=== PATIENT | female | born 1980 | race American Indian/Alaskan Native ===

== ENCOUNTER 2017-08-09 06:49 | Day surgery (SDC) | payer MEDICARE ==
[2017-08-09] MEDS ORDERED: NACL 0.9% 1000 ML 1,000 ML IV SCH (08:00)
--- NOTE | 2017-08-09 08:11 | Anesthesia Day of Surgery ---
Anesthesia Day of Surgery - Day of Surgery Patient Examined: Yes Patient is NPO: Yes Beta Blockers: Yes
--- NOTE | 2017-08-09 08:13 | Anesthesia Consultation ---
Anesthesia Consult and Med Hx Date of service: 08/09/17 - Airway Anesthetic Teeth Evaluation: Dentures, Edentulous ROM Head & Neck: Adequate Mental/Hyoid Distance: Adequate Mallampati Class: Class II Intubation Access Assessment: Probably Good - Pulmonary Exam CTA: Yes - Cardiac Exam Cardiac Exam: RRR - Pre-Operative Health Status ASA Pre-Surgery Classification: ASA3 Proposed Anesthetic Plan: MAC - Pulmonary Hx Smoking: Yes ( A TEENAGER, NONE SINCE) Hx Asthma: Yes Hx Sleep Apnea: Yes (MILD, NOT ON CPAP) - Cardiovascular System Hx Hypertension: Yes Hx Cardia Arrhythmia: Yes (TACHYCARDIA) Hx Pacemaker: Yes Hx Internal Defibrillator: Yes (EF 35%) - Central Nervous System Hx Seizures: Yes (GRAND MAL, TOOK MEDS THIS AM) CVA: Yes (QUESTIONABLE, MAY HAVE BEEN A SEIZURE, NO RESIDUAL DEFICIT) Hx Back Pain: Yes - Gastrointestinal Hx Gastroesophageal Reflux Disease: Yes - Endocrine Hx Renal Disease: No Hx Liver Disease: Yes (FATTY LIVER) Hx Insulin Dependent Diabetes: Yes Hx Thyroid Disease: No - Other Systems Hx Cancer: Yes (OVARIAN) Hx Obesity: Yes (MORBID)
[2017-08-09] MEDS ORDERED: DIPRIVAN 10 MG/ML IV ONE (09:15)
[2017-08-09] MEDS ORDERED: WATER FOR IRRIG STERILE IR ONE (09:18)
--- NOTE | 2017-08-09 10:29 | Operative Report ---
Operative Report Operative Report: EGD Post bypass DATE: 08/09/17 OPERATIVE REPORT - EGD PREOP DIAGNOSIS: gastric dyspepsia POSTOP DIAGNOSIS: same SURGERY: Upper endoscopy. SURGEON: Arya Sorensen M.D. LOADER HELPER S[employer]ING YARD: Priyanka Camacho M.D. TYPE OF ANESTHESIA: MAC. ESTIMATED BLOOD LOSS: None. COMPLICATIONS: None. SPECIMENS REMOVED: None. FINDINGS: 1. normal esophagus 2. gastric pouch - 50-60ml 3. gastrojejunal anastomosis is 15-20mm INDICATIONS:INDICATION FOR PROCEDURE: Patient is a 37-year-old s/p gastric bypass in. The patient is here today for evaluation for revisional surgery. The patient is here for a planned EGD for gastric dyspepsia. PROCEDURE DETAILS: After consent was reviewed, patient was taken back to the operating room where patient was placed in the left lateral decubitus position and a bite block was placed in the mouth. After a time-out was called, MAC anesthesia was initiated. I then passed the endoscope into the patients oropharynx, into the esophagus, visualized the entire esophagus, which was all within normal limits. I then visualized the gastric pouch which was normal and about 50-60ml in size. The gastrojejunal anastomosis was normal at about 15-20mm. The proximal portion of the kayce limb was normal. I then desufflated the gastric pouch and removed the endoscope. Patient tolerated procedure well and was transferred to recovery room in good and stable condition.
--- NOTE | 2017-08-09 10:31 | Discharge Summary ---
Providers - Providers Date of discharge: 08/09/17 Attending physician: ZAHRAA MENDOZA Hospitalization Condition: Good Procedures: egd Disposition: DC-01 TO HOME OR SELFCARE Core Measure Documentation - Palliative Care Palliative Care/ Comfort Measures: Not Applicable - Core Measures Any of the following diagnoses?: none Exam - Physical Exam Narrative exam: unchanged from pre-op - Constitutional Vitals: Temp Pulse Resp BP Pulse Ox 98.3 F 86 18 114/39 97 08/09/17 10:13 08/09/17 10:28 08/09/17 10:28 08/09/17 10:28 08/09/17 10:28 Plan Weight Bearing Status: Full Weight Bearing Diet: regular
[2017-08-09 10:45] VITALS: BP 123/59
--- NOTE | 2017-08-09 12:01 | Post Anesthesia Evaluation ---
- Post Anesthesia Evaluation Patient Participated: Yes Airway Patent: Yes Stable Respiratory Function: Yes Nausea/Vomiting: No Temp > 96.8F: Yes Pain Manageable: Yes Adequeate Hydration: Yes Anesthesia Complications: No Block Receding Appropriately: Not Applicable Patient on Ventilator: No
== END 2017-08-09 06:50 | disposition home or self-care (01) ==
LOC: GIO 06:49
PROVIDERS: ATTEND Surgery
DX: R10.13 Epigastric pain (principal); J45.909 Unspecified asthma, uncomplicated; G40.409 Other generalized epilepsy and epileptic syndromes, not intractable, without status epilepticus; K21.9 Gastro-esophageal reflux disease without esophagitis; I11.0 Hypertensive heart disease with heart failure; I50.9 Heart failure, unspecified; E11.9 Type 2 diabetes mellitus without complications; G47.33 Obstructive sleep apnea (adult) (pediatric); E78.4 Other hyperlipidemia; E66.01 Morbid (severe) obesity due to excess calories; Z68.42 Body mass index [BMI] 45.0-49.9, adult; Z86.73 Personal history of transient ischemic attack (TIA), and cerebral infarction without residual deficits; Z95.810 Presence of automatic (implantable) cardiac defibrillator; Z87.891 Personal history of nicotine dependence; Z98.84 Bariatric surgery status; Z85.43 Personal history of malignant neoplasm of ovary; Z88.8 Allergy status to other drugs, medicaments and biological substances; Z91.013 Allergy to seafood; Z98.890 Other specified postprocedural states
CPT/HCPCS: 43235; 81025; 82962; J2704; J7030